=== PATIENT | male | born 1950 | race African-American/Black ===

== ENCOUNTER 2018-03-16 18:19 | Emergency (ER) | payer MEDICARE, MEDICAID ==
--- NOTE | 2018-03-16 18:48 | ED Physician Chart ---
ED Chief Complaint/HPI - Patient Information Date Seen:: 03/16/18 Time Seen:: 18:29 Chief Complaint:: fall History of Present Illness:: 67 yr old with question fall 2 days ago with rt hip pain pt non verbal non alert his usual Allergies:: Allergies Allergy/AdvReac Type Severity Reaction Status Date / Time Penicillins Allergy Intermediate HIVES Verified 03/16/18 18:43 Vitals:: Vital Signs - 8 hr 03/16/18 18:20 Temp 98.1 F HR 79 RR 18 BP 142/85 O2 Sat % 97 ED Review of Systems - Review of Systems General/Constitutional: No fever Eyes: No loss of vision Neck: No swelling Cardio Vascular: No edema Pulmonary: No SOB GI: No vomiting Musculoskeletal: Bone or joint pain Psychiatric: No anxiety Neurological: No syncope ED Past Medical History - Past Medical History Past Medical History: HTN, DM, PUD/GERD Medication: Reviewed ED Physical Exam - Physical Examination General/Constitutional: No distress Other Gen/Cons comments:: pt non verbal not easily following commands he wiggles toes on left more than rt Head: Atraumatic Eyes: Lids, conjuctiva normal Neck: No JVD Respiratory: Nl effort/Exclusion Cardio Vascular: RRR GI: No tenderness/rebounding/guarding Other Neuro/Psych comments:: pt awake following some commands but not verbalizing ED Assessment - Assessment General Assessment: hx of possible fall 2 days ago non witnessed rt hip pain no deformitity or foot external rotation ED Septic Shock - . Is Septic Shock (SBP<90, OR Lactate>4 mmol\L) present?: No - <6hrs of presentation: Vital Signs: Vital Signs - 8 hr 03/16/18 18:20 Temp 98.1 F HR 79 RR 18 BP 142/85 O2 Sat % 97 ED Reassessment (Disposition) - Diagnosis Diagnosis:: fall rt hip pain pelvis xray ordered - Patient Disposition Discharge/Transfer:: Home
[2018-03-16 19:51] LABS: % BASOPHILS 0.1 % (0.0-2.0); % EOSINOPHILS 1.9 % (0.0-5.0); % LYMPHOCYTES 28.9 % (20.0-50.0); % MONOCYTES 2.5 % (2.0-10.0); % NEUTROPHILS 66.6 % (40.0-80.0); EOSINOPHILE ABSOLUTE 0.2 Th/cmm (0.1-0.4); HEMATOCRIT 45.1 % (41.0-60); HEMOGLOBIN 15.2 gm/dL (12-16); LYMPHOCYTE ABSOLUTE 2.7 Th/cmm (1.5-3.0); MEAN CELL VOLUME 86.8 fl (80-99); MEAN CORPUSCULAR HEMOGLOBIN 29.4 pg (27.0-31.0); MEAN CORPUSCULAR HGB CONC 33.8 pg (28.0-36.0); MEAN PLATELET VOLUME 7.3 fl; MONOCYTE ABSOLUTE 0.2 Th/cmm (0.3-1.0); NEUTROPHILE ABSOLUTE 6.3 Th/cmm (1.8-8.0); PLATELET COUNT 248 Th/cmm (150-400); RED BLOOD COUNT 5.19 Mil/cmm (3.80-5.80); RED CELL DISTRIBUTION WIDTH 13.4 % (11.5-20.0); WHITE BLOOD COUNT 9.4 Th/cmm (4.8-10.8)
[2018-03-16 20:08] LABS: ALB/GLOB RATIO 1.2 (1.0-1.8); ALBUMIN 3.7 gm/dL (4.2-5.5); ALKALINE PHOSPHATASE 49 U/L (34-104); ANION GAP 12.3 (7.0-16.0); BILIRUBIN,TOTAL 0.3 mg/dL (0.3-1.0); BUN - UREA NITROGEN 8 mg/dL (7-25); CALCIUM SERUM 9.1 mg/dL (8.6-10.3); CARBON DIOXIDE 26.2 mEq/L (21.0-31.0); CHLORIDE 104 mEq/L (98-107); CREATININE - SERUM 0.6 mg/dL (0.7-1.3); GFR AFRICAN-AMERICAN > 60.0 ml/min (>90); GFR NON AFRICAN-AMERICAN > 60.0 ml/min; GLUCOSE 121 mg/dL (70-105); POTASSIUM SERUM 3.5 mEq/L (3.5-5.1); SGOT 51 U/L (13-39); SGPT/ALT 85 U/L (7-52); SODIUM SERUM 139 mEq/L (136-145); TOTAL PROTEIN,SERUM 6.7 gm/dL (6.0-8.3)
--- NOTE | 2018-03-17 10:07 | Diagnostic Imaging Report ---
Pelvis (single view) HISTORY: Pain, trauma No definite acute bony abnormalities. No definite fractures. Hip joints appear normal. IMPRESSION: 1. No definite acute abnormalities. 2. Atherosclerotic vascular changes In the presence of recent trauma and persistent symptoms, a repeat radiograph in 5-7 days may be helpful for detection of a subtle or occult fracture.
--- NOTE | 2018-03-17 10:07 | Diagnostic Imaging Report ---
Right hip (2 views) HISTORY: Pain, trauma Right hip joint appears normal. The femoral head exhibits a normal contour. No focal lesions. Vascular calcification seen. IMPRESSION: 1. No acute abnormalities 2. Atherosclerotic vascular changes
== END 2018-03-16 21:20 ==
LOC: ER 18:19
DX: M25.551 Pain in right hip (principal); I10 Essential (primary) hypertension; E11.9 Type 2 diabetes mellitus without complications; K21.9 Gastro-esophageal reflux disease without esophagitis; Z88.0 Allergy status to penicillin
CPT/HCPCS: 36415-UA; 72170-TC; 73501; 80053-TC; 85025-TC

== ENCOUNTER 2018-03-18 20:27 | Inpatient (IN) | payer MEDICARE, MEDICAID ==
--- NOTE | 2018-03-18 20:58 | ED Physician Chart ---
ED Chief Complaint/HPI - Patient Information Date Seen:: 03/18/18 Time Seen:: 20:58 Chief Complaint:: Failure to thrive History of Present Illness:: 67 yo male was brought from [facility] to ER for evaluation of failure to thrive with poor appetite, worsened depression and withdrawn behaviors. At ER, patient had increased effort of breathing and elevated respiratory rate. Allergies:: Allergies Allergy/AdvReac Type Severity Reaction Status Date / Time Penicillins Allergy Intermediate HIVES Verified 03/18/18 20:51 Vitals:: Vital Signs - 8 hr 03/18/18 20:30 Temp 101.9 F HR 109 RR 20 BP 145/86 O2 Sat % 95 ED Review of Systems - Review of Systems General/Constitutional: Fever, No chills Skin: No bruising Head: No headache Eyes: No pain ENT: No nasal drainage Neck: No neck pain Cardio Vascular: No chest pain Pulmonary: Cough, Sputum GI: No nausea, No vomiting Musculoskeletal: No bone or joint pain Psychiatric: Prior psych history Neurological: Weakness ED Past Medical History - Past Medical History Past Medical History: HTN, DM, PUD/GERD, Thyroid disorder, Other (Polyneuropathy , osteoarthritis) Social History: Non Smoker, No Alcohol, No Drug Use Psychiatricy History: Depression, Schizophrenia Family Medical History - Family Member Mother History Unknown: Yes ED Physical Exam - Physical Examination General/Constitutional: Awake, Alert Head: Atraumatic Eyes: PERRL Skin: No ecchymosis Other ENMT comments:: No denture Neck: No nuchal rigidity Other Respiratory comments:: Right lung rhonchi and crackles Cardio Vascular: RRR, No murmur, gallop, rubs, NL S1 S2 GI: No tenderness/rebounding/guarding Extremities: No edema Other Neuro/Psych comments:: Oriented to self and place. Unsteady gait ED Labs/Radiology/EKG Results - Lab Results Results: Laboratory Last Values WBC 9.6 Th/cmm (4.8-10.8) 03/18/18 20:59 RBC 5.42 Mil/cmm (3.80-5.80) 03/18/18 20:59 Hgb 16.1 gm/dL (12-16) 03/18/18 20:59 Hct 48.0 % (41.0-60) 03/18/18 20:59 MCV 88.7 fl (80-99) 03/18/18 20:59 MCH 29.7 pg (27.0-31.0) 03/18/18 20:59 MCHC Differential 33.4 pg (28.0-36.0) 03/18/18 20:59 RDW 13.6 % (11.5-20.0) 03/18/18 20:59 Plt Count 237 Th/cmm (150-400) 03/18/18 20:59 MPV 7.5 fl 03/18/18 20:59 Neutrophils % 66.5 % (40.0-80.0) 03/18/18 20:59 Lymphocytes % 23.9 % (20.0-50.0) 03/18/18 20:59 Monocytes % 8.4 % (2.0-10.0) 03/18/18 20:59 Eosinophils % 1.2 % (0.0-5.0) 03/18/18 20:59 Basophils % 0.0 % (0.0-2.0) 03/18/18 20:59 D-Dimer 389 ng/mL (100-400) 03/18/18 20:28 Specimen Source ARTERIAL 03/18/18 22:42 Sample Site Right Radial 03/18/18 22:42 pH 7.47 (7.35-7.45) H 03/18/18 22:42 pCO2 40.0 mmHg (35.0-45.0) 03/18/18 22:42 pO2 91.0 mmHg (80.0-100.0) 03/18/18 22:42 HCO3 28.9 mEq/L (20.0-26.0) H 03/18/18 22:42 Base Excess 5.0 mEq/L (-3.0-3.0) H 03/18/18 22:42 O2 Saturation 98.0 % (92.0-100.0) 03/18/18 22:42 Shadi Test Y 03/18/18 22:42 Vent Rate N/A 03/18/18 22:42 Inspired O2 28 03/18/18 22:42 Tidal Volume N/A 03/18/18 22:42 PEEP N/A 03/18/18 22:42 Pressure (ins/psv/peep) N/A 03/18/18 22:42 Critical Value OPAL RT 03/18/18 22:42 Carbon Dioxide 24.4 mEq/L (21.0-31.0) 03/18/18 20:59 BUN 9 mg/dL (7-25) 03/18/18 20:59 Creatinine 0.6 mg/dL (0.7-1.3) L 03/18/18 20:59 Est GFR ( Amer) > 60.0 ml/min (>90) 03/18/18 20:59 Est GFR (Non-Af Amer) > 60.0 ml/min 03/18/18 20:59 BUN/Creatinine Ratio 15.0 03/18/18 20:59 Glucose 155 mg/dL (70-105) H 03/18/18 20:59 Calcium 9.2 mg/dL (8.6-10.3) 03/18/18 20:59 Total Bilirubin 0.4 mg/dL (0.3-1.0) 03/18/18 20:59 AST 43 U/L (13-39) H 03/18/18 20:59 ALT 72 U/L (7-52) H 03/18/18 20:59 Alkaline Phosphatase 60 U/L (34-104) 03/18/18 20:59 Troponin I 0.01 ng/mL (0.01-0.05) 03/18/18 20:59 B-Natriuretic Peptide 25.7 pg/mL (5.0-100.0) 03/18/18 20:59 Total Protein 7.3 gm/dL (6.0-8.3) 03/18/18 20:59 Albumin 3.9 gm/dL (4.2-5.5) L 03/18/18 20:59 Globulin 3.4 gm/dL 03/18/18 20:59 Albumin/Globulin Ratio 1.2 (1.0-1.8) 03/18/18 20:59 Urine Source RANDOM 03/18/18 21:55 Urine Color YELLOW 03/18/18 21:55 Urine Clarity CLEAR (CLEAR) 03/18/18 21:55 Urine pH 6.5 (4.6 - 8.0) 03/18/18 21:55 Ur Specific [place] 1.015 (1.005-1.030) 03/18/18 21:55 Urine Protein NEGATIVE mg/dL (NEGATIVE) 03/18/18 21:55 Urine Glucose (UA) NEGATIVE mg/dL (NEGATIVE) 03/18/18 21:55 Urine Ketones NEGATIVE mg/dL (NEGATIVE) 03/18/18 21:55 Urine Blood TRACE (NEGATIVE) 03/18/18 21:55 Urine Nitrate NEGATIVE (NEGATIVE) 03/18/18 21:55 Urine Bilirubin NEGATIVE (NEGATIVE) 03/18/18 21:55 Urine Urobilinogen 4.0 E.U./dL (0.2 - 1.0) H 03/18/18 21:55 Ur Leukocyte Esterase NEGATIVE (NEGATIVE) 03/18/18 21:55 Urine RBC 2-5 /hpf (0-5) H 03/18/18 21:55 Urine WBC 0-2 /hpf (0-5) 03/18/18 21:55 Ur Epithelial Cells FEW /lpf (FEW) 03/18/18 21:55 Urine Bacteria FEW /hpf (NONE SEEN) 03/18/18 21:55 Urine Mucus MODERATE /lpf (FEW) 03/18/18 21:55 - Radiology Results Results: CXR: possible right lung nicola-cardiac small infiltrate - EKG Interpretations EKG Time:: 21:12 Rate & Rhythm: 104 bpm, sinus tachycardia [place]: left axis deviation Intervals: ME 162, QRS 103 Comments:: nonspecific T waves changes lateral leads ED Assessment - Assessment General Assessment: Failure to thrive Early pneumonia Metabolic alkalosis Assessment/Comments:: CBC, CMP, Trop I, BNP, D-dimer, UA ABG CXR, EKG DuoNeb Admit to telemetry for further evaluation and management ED Septic Shock - . Is Septic Shock (SBP<90, OR Lactate>4 mmol\L) present?: No - <6hrs of presentation: Vital Signs: Vital Signs - 8 hr 03/18/18 20:30 Temp 101.9 F HR 109 RR 20 BP 145/86 O2 Sat % 95 ED Reassessment (Disposition) - Reassessment Reassessment Condition:: Improved - Patient Disposition Discharge/Transfer:: Acute Care w/in this hosp Admitting Medical Physician:: Shaun Sheth
[2018-03-18 21:07] LABS: % EOSINOPHILS 1.2 % (0.0-5.0); % LYMPHOCYTES 23.9 % (20.0-50.0); % MONOCYTES 8.4 % (2.0-10.0); % NEUTROPHILS 66.5 % (40.0-80.0); EOSINOPHILE ABSOLUTE 0.1 Th/cmm (0.1-0.4); HEMOGLOBIN 16.1 gm/dL (12-16); LYMPHOCYTE ABSOLUTE 2.3 Th/cmm (1.5-3.0); MEAN CELL VOLUME 88.7 fl (80-99); MEAN CORPUSCULAR HEMOGLOBIN 29.7 pg (27.0-31.0); MEAN CORPUSCULAR HGB CONC 33.4 pg (28.0-36.0); MEAN PLATELET VOLUME 7.5 fl; MONOCYTE ABSOLUTE 0.8 Th/cmm (0.3-1.0); NEUTROPHILE ABSOLUTE 6.4 Th/cmm (1.8-8.0); PLATELET COUNT 237 Th/cmm (150-400); RED BLOOD COUNT 5.42 Mil/cmm (3.80-5.80); RED CELL DISTRIBUTION WIDTH 13.6 % (11.5-20.0); WHITE BLOOD COUNT 9.6 Th/cmm (4.8-10.8)
[2018-03-18] MEDS ORDERED: Albuterol/Ipratropium Neb 3 ML AERS HHN ONE ×2 (22:29→22:36)
[2018-03-18 23:23] LABS: pH 7.47 (7.35-7.45)
[2018-03-18 23:24] LABS: ALLEN TEST Y
[2018-03-18 23:30] LABS: ALB/GLOB RATIO 1.2 (1.0-1.8); ALBUMIN 3.9 gm/dL (4.2-5.5); ALKALINE PHOSPHATASE 60 U/L (34-104); BILIRUBIN,TOTAL 0.4 mg/dL (0.3-1.0); BUN - UREA NITROGEN 9 mg/dL (7-25); CALCIUM SERUM 9.2 mg/dL (8.6-10.3); CARBON DIOXIDE 24.4 mEq/L (21.0-31.0); GFR AFRICAN-AMERICAN > 60.0 ml/min (>90); GFR NON AFRICAN-AMERICAN > 60.0 ml/min; GLUCOSE 155 mg/dL (70-105); SGOT 43 U/L (13-39); SGPT/ALT 72 U/L (7-52); TOTAL PROTEIN,SERUM 7.3 gm/dL (6.0-8.3)
[2018-03-18 23:57] LABS: URINE SOURCE RANDOM
[2018-03-19] LABS: URINE BILIRUBIN NEGATIVE (NEGATIVE); URINE BLOOD TRACE (NEGATIVE); URINE GLUCOSE (UA) NEGATIVE (NEGATIVE); URINE KETONE NEGATIVE (NEGATIVE); URINE LEUKOCYTE ESTERASE NEGATIVE (NEGATIVE); URINE MICROSCOPIC INDICATED? YES; URINE NITRATE NEGATIVE (NEGATIVE); URINE PH 6.5 (4.6 - 8.0); URINE PROTEIN NEGATIVE (NEGATIVE)
[2018-03-19 00:06] LABS: URINE BACTERIA FEW /hpf (NONE SEEN); URINE CLARITY CLEAR (CLEAR); URINE COLOR YELLOW; URINE EPITHELIAL CELLS FEW /lpf (FEW); URINE WBC 0-2 /hpf (0-5)
--- NOTE | 2018-03-19 00:24 | History & Physical ---
ADMIT DATE: 03/18/2018 CHIEF COMPLAINT: Repeated falls with severe pain on the knees and ankle and confusion. HISTORY OF PRESENT ILLNESS: The patient is a 67-year-old -[place] male admitted from the Emergency Room to telemetry floor of [facility] due to multiple complicated medical conditions. Apparently, the patient had become more confused in the past few days and he fell multiple times. The patient complained of severe pain albeit x-ray revealed no fracture on last visit 2 days ago to the Emergency Room here. After [facility] to the [facility], the patient became more confused and very weak complaining of pain. He insisted on coming to the Emergency Room again. In the Emergency Room here the ABG revealed pH 7.47 and pCO2 of 28.9 consistent with metabolic alkalosis. This is of unclear etiology. Chest x-ray revealed possible early pneumonia according to ER physician, though the official report is not available yet. Lab ovalles, his AST is slightly high at 43, ALT is slightly high at 72. Troponin less than 0.01. UA was ordered. I have ordered blood culture and urine culture as well. PAST MEDICAL HISTORY: Including hypertension, gastroesophageal reflux disease, diabetes, psychosis, insomnia. PAST SURGICAL HISTORY: Denies significant past surgical history. MEDICATIONS: See medication reconciliation list. ALLERGIES: PENICILLIN. FAMILY HISTORY: Noncontributory. SOCIAL HISTORY: The patient smoked before and still smoking somewhat. No history of alcohol or IV drug abuse. REVIEW OF SYSTEMS: As per HPI. PHYSICAL EXAMINATION: GENERAL: Well-developed male, in no acute distress. SKIN: Warm and dry. VITAL SIGNS: Blood pressure is 151/89, pulse 109, temperature 101.9 degrees Fahrenheit. HEENT: Normocephalic, atraumatic. Pupils equal, round, react to light and accommodation. CHEST: Symmetrical. LUNGS: Few wheezing appreciated on right side. CARDIAC: Tachycardia on and off. ABDOMEN: Benign, soft, nontender. EXTREMITIES: No clubbing, cyanosis, edema . NEUROLOGIC: Unremarkable. LABORATORY DATA: Reviewed as seen from the computer. ASSESSMENT AND PLAN: 1. Fever as high as 101.9 degree Fahrenheit. Etiology of this is not clear, but I have ordered blood culture and urine culture. We will also do sputum culture as well and empiric antibiotics started, which will be adjusted accordingly. 2. Tachycardia: Probably due to fever. 3. Early pneumonia on the right side: Blood culture and sputum culture ordered. RT protocol ordered. Empiric antibiotics started, which will be adjusted accordingly. 4. Metabolic alkalosis: Unclear etiology. We will repeat ABG in the morning. 5. Altered level of consciousness on and off due to metabolic encephalopathy and dementia. 6. History of diabetes: Sliding scale insulin low dose. 7. Hypertension: We will observe closely and adjust medications as needed. 8. History of gastroesophageal reflux disease. 9. DVT prophylaxis. JOB# [id number]
[2018-03-19 01:19] LABS: ANION GAP 17.4 (7.0-16.0); CHLORIDE 104 mEq/L (98-107); CREATININE - SERUM 0.6 mg/dL (0.7-1.3); POTASSIUM SERUM 3.8 mEq/L (3.5-5.1); SODIUM SERUM 142 mEq/L (136-145)
[2018-03-19] MEDS: cefTRIAXone 1 GM in Sodium Chloride 0.9% 50 ML IV SCH (06:00)
[2018-03-19 06:39] LABS: % EOSINOPHILS 0.4 % (0.0-5.0); % LYMPHOCYTES 19.7 % (20.0-50.0); % MONOCYTES 9.9 % (2.0-10.0); HEMATOCRIT 47.6 % (41.0-60); HEMOGLOBIN 15.7 gm/dL (12-16); LYMPHOCYTE ABSOLUTE 2.3 Th/cmm (1.5-3.0); MEAN CELL VOLUME 88.9 fl (80-99); MEAN CORPUSCULAR HEMOGLOBIN 29.4 pg (27.0-31.0); MEAN PLATELET VOLUME 7.8 fl; MONOCYTE ABSOLUTE 1.1 Th/cmm (0.3-1.0); NEUTROPHILE ABSOLUTE 8.2 Th/cmm (1.8-8.0); PLATELET COUNT 214 Th/cmm (150-400); RED BLOOD COUNT 5.35 Mil/cmm (3.80-5.80); RED CELL DISTRIBUTION WIDTH 13.4 % (11.5-20.0); WHITE BLOOD COUNT 11.6 Th/cmm (4.8-10.8)
[2018-03-19 07:06] VITALS: BP 145/100
--- NOTE | 2018-03-19 08:30 | Diagnostic Imaging Report ---
Chest x-ray (single view, AP) HISTORY: Shortness of breath Allowing for a poor inspiration, the heart size is normal. No focal pulmonary processes. No hilar or mediastinal abnormalities. IMPRESSION: No acute abnormalities
[2018-03-19] MEDS: Albuterol/Ipratropium Neb 3 ML AERS HHN PRN ×2 (08:33→14:06)
[2018-03-19 09:04] LABS: CHOLESTEROL 170 mg/dL (<200); HDL -HIGH DENSITY LIPOPROTEIN 29 mg/dL (23-92); TRIGLYCERIDES 52 mg/dL (<150)
[2018-03-19 09:06] LABS: ALB/GLOB RATIO 1.1 (1.0-1.8); ALBUMIN 3.7 gm/dL (4.2-5.5); ALKALINE PHOSPHATASE 55 U/L (34-104); ANION GAP 17.1 (7.0-16.0); BILIRUBIN,TOTAL 0.6 mg/dL (0.3-1.0); BUN - UREA NITROGEN 9 mg/dL (7-25); CALCIUM SERUM 9.4 mg/dL (8.6-10.3); CARBON DIOXIDE 22.3 mEq/L (21.0-31.0); CHLORIDE 105 mEq/L (98-107); CREATININE - SERUM 0.6 mg/dL (0.7-1.3); GFR AFRICAN-AMERICAN > 60.0 ml/min (>90); GFR NON AFRICAN-AMERICAN > 60.0 ml/min; GLUCOSE 128 mg/dL (70-105); POTASSIUM SERUM 3.4 mEq/L (3.5-5.1); SGOT 39 U/L (13-39); SGPT/ALT 65 U/L (7-52); SODIUM SERUM 141 mEq/L (136-145)
[2018-03-19] MEDS ORDERED: VTE Chemical Prophylaxis Screen/Admission MC PRN (10:12)
[2018-03-19] MEDS ORDERED: Probiotic Screen MC PRN (11:37)
[2018-03-19] MEDS: Lactobacillus Rhamnosus GG 15 Billion CFU CAP.SPRINK PO SCH (14:38)
[2018-03-19] MEDS: Albuterol/Ipratropium Neb 3 ML AERS HHN SCH ×3 (15:50→22:49)
[2018-03-19] MEDS: Potassium Chloride 20 mEq ER Tab PO SCH (21:13)
--- NOTE | 2018-03-19 22:47 | Internal Medicine Prog Note ---
Internal Medicine Subjective - Subjective Service Date: 03/19/18 Patient seen and examined:: without staff Patient is:: awake, verbal, eyes closed, in bed Per staff patient has:: no adverse event Internal Medicine Objective - Results Result Diagrams: 03/19/18 06:10 03/19/18 06:10 Recent Labs: Laboratory Last Values WBC 11.6 Th/cmm (4.8-10.8) H 03/19/18 06:10 RBC 5.35 Mil/cmm (3.80-5.80) 03/19/18 06:10 Hgb 15.7 gm/dL (12-16) 03/19/18 06:10 Hct 47.6 % (41.0-60) 03/19/18 06:10 MCV 88.9 fl (80-99) 03/19/18 06:10 MCH 29.4 pg (27.0-31.0) 03/19/18 06:10 MCHC Differential 33.0 pg (28.0-36.0) 03/19/18 06:10 RDW 13.4 % (11.5-20.0) 03/19/18 06:10 Plt Count 214 Th/cmm (150-400) 03/19/18 06:10 MPV 7.8 fl 03/19/18 06:10 Neutrophils % 70.0 % (40.0-80.0) 03/19/18 06:10 Lymphocytes % 19.7 % (20.0-50.0) L 03/19/18 06:10 Monocytes % 9.9 % (2.0-10.0) 03/19/18 06:10 Eosinophils % 0.4 % (0.0-5.0) 03/19/18 06:10 Basophils % 0.0 % (0.0-2.0) 03/19/18 06:10 D-Dimer 389 ng/mL (100-400) 03/18/18 20:28 Specimen Source ARTERIAL 03/18/18 22:42 Sample Site Right Radial 03/18/18 22:42 pH 7.47 (7.35-7.45) H 03/18/18 22:42 pCO2 40.0 mmHg (35.0-45.0) 03/18/18 22:42 pO2 91.0 mmHg (80.0-100.0) 03/18/18 22:42 HCO3 28.9 mEq/L (20.0-26.0) H 03/18/18 22:42 Base Excess 5.0 mEq/L (-3.0-3.0) H 03/18/18 22:42 O2 Saturation 98.0 % (92.0-100.0) 03/18/18 22:42 Shadi Test Y 03/18/18 22:42 Vent Rate N/A 03/18/18 22:42 Inspired O2 28 03/18/18 22:42 Tidal Volume N/A 03/18/18 22:42 PEEP N/A 03/18/18 22:42 Pressure (ins/psv/peep) N/A 03/18/18 22:42 Critical Value OPAL RT 03/18/18 22:42 Sodium 141 mEq/L (136-145) 03/19/18 06:10 Potassium 3.4 mEq/L (3.5-5.1) L 03/19/18 06:10 Chloride 105 mEq/L (98-107) 03/19/18 06:10 Carbon Dioxide 22.3 mEq/L (21.0-31.0) 03/19/18 06:10 Anion Gap 17.1 (7.0-16.0) H 03/19/18 06:10 BUN 9 mg/dL (7-25) 03/19/18 06:10 Creatinine 0.6 mg/dL (0.7-1.3) L 03/19/18 06:10 Est GFR ( Amer) > 60.0 ml/min (>90) 03/19/18 06:10 Est GFR (Non-Af Amer) > 60.0 ml/min 03/19/18 06:10 BUN/Creatinine Ratio 15.0 03/19/18 06:10 Glucose 128 mg/dL (70-105) H 03/19/18 06:10 Calcium 9.4 mg/dL (8.6-10.3) 03/19/18 06:10 Total Bilirubin 0.6 mg/dL (0.3-1.0) 03/19/18 06:10 AST 39 U/L (13-39) 03/19/18 06:10 ALT 65 U/L (7-52) H 08/22/18 06:10 Alkaline Phosphatase 55 U/L (34-104) 03/19/18 06:10 Troponin I 0.01 ng/mL (0.01-0.05) 03/18/18 20:59 B-Natriuretic Peptide 25.7 pg/mL (5.0-100.0) 03/18/18 20:59 Total Protein 7.0 gm/dL (6.0-8.3) 03/19/18 06:10 Albumin 3.7 gm/dL (4.2-5.5) L 03/19/18 06:10 Globulin 3.3 gm/dL 03/19/18 06:10 Albumin/Globulin Ratio 1.1 (1.0-1.8) 03/19/18 06:10 Triglycerides 52 mg/dL (<150) 03/19/18 06:10 Cholesterol 170 mg/dL (<200) 03/19/18 06:10 LDL Cholesterol Direct 140 mg/dL (75-193) 03/19/18 06:10 HDL Cholesterol 29 mg/dL (23-92) 03/19/18 06:10 TSH 0.71 uIU/ml (0.34-5.60) 03/19/18 06:10 Urine Source RANDOM 03/18/18 21:55 Urine Color YELLOW 03/18/18 21:55 Urine Clarity CLEAR (CLEAR) 03/18/18 21:55 Urine pH 6.5 (4.6 - 8.0) 03/18/18 21:55 Ur Specific [place] 1.015 (1.005-1.030) 03/18/18 21:55 Urine Protein NEGATIVE mg/dL (NEGATIVE) 03/18/18 21:55 Urine Glucose (UA) NEGATIVE mg/dL (NEGATIVE) 03/18/18 21:55 Urine Ketones NEGATIVE mg/dL (NEGATIVE) 03/18/18 21:55 Urine Blood TRACE (NEGATIVE) 03/18/18 21:55 Urine Nitrate NEGATIVE (NEGATIVE) 03/18/18 21:55 Urine Bilirubin NEGATIVE (NEGATIVE) 03/18/18 21:55 Urine Urobilinogen 4.0 E.U./dL (0.2 - 1.0) H 03/18/18 21:55 Ur Leukocyte Esterase NEGATIVE (NEGATIVE) 03/18/18 21:55 Urine RBC 2-5 /hpf (0-5) H 03/18/18 21:55 Urine WBC 0-2 /hpf (0-5) 03/18/18 21:55 Ur Epithelial Cells FEW /lpf (FEW) 03/18/18 21:55 Urine Bacteria FEW /hpf (NONE SEEN) 03/18/18 21:55 Urine Mucus MODERATE /lpf (FEW) 03/18/18 21:55 - Physical Exam Vitals and I&O: Vital Signs Temp 98.1 F 03/19/18 15:48 Pulse 111 03/19/18 18:53 Resp 22 03/19/18 18:53 BP 138/78 03/19/18 16:37 Pulse Ox 97 03/19/18 18:53 Intake & Output 03/19/18 03/19/18 03/20/18 06:59 18:59 06:59 Intake Total 950 Balance 950 Weight (lbs) 79.923 kg 80.467 kg Intake: Oral 950 Other: # Voids 1 # Bowel Movements 0 Weight Source Bedscale Bedscale Active Medications: Current Medications Albuterol/Ipratropium (Duoneb Neb) 3 ml HHN Q4HRT CELESTINO Stop: 05/18/18 14:59 Last Admin: 03/19/18 18:52 Dose: 3 ml Amlodipine Besylate (Norvasc) 5 mg PO DAILY CELESTINO Stop: 05/18/18 08:59 Last Admin: 03/19/18 09:13 Dose: 5 mg Famotidine (Pepcid) 20 mg PO HS CELESTINO Stop: 05/18/18 20:59 Last Admin: 03/19/18 21:12 Dose: 20 mg Heparin Sodium (Porcine) (Heparin) 5,000 units SUBQ Q12HR CELESTINO Stop: 05/18/18 20:59 Last Admin: 03/19/18 21:11 Dose: 5,000 units Ceftriaxone Sodium 1 gm/ (Sodium Chloride) 50 mls @ 100 mls/hr IV Q24HR CELESTINO Stop: 05/18/18 02:29 Last Admin: 03/19/18 06:00 Dose: 100 mls/hr Lactobacillus Rhamnosus (Culturelle 15b) 1 each PO DAILY CELESTINO Stop: 05/18/18 13:59 Last Admin: 03/19/18 14:38 Dose: 1 each Metformin HCl (Glucophage) 500 mg PO BID CELESTINO Stop: 05/18/18 08:59 Last Admin: 03/19/18 16:38 Dose: 500 mg Metoprolol Tartrate (Lopressor) 25 mg PO BID CELESTINO Stop: 05/18/18 08:59 Last Admin: 03/19/18 16:37 Dose: 25 mg Miscellaneous (Vte Chemical Prophylaxis Screen/ Admission) 1 ea PRN PRN PRN Reason: PROTOCOL Stop: 05/18/18 10:11 Miscellaneous (Probiotic Screen) 1 ea PRN PRN PRN Reason: PROTOCOL Stop: 05/18/18 11:36 Olanzapine (Zyprexa) 20 mg PO HS CELESTINO; Protocol Stop: 05/18/18 20:59 Last Admin: 03/19/18 21:48 Dose: 20 mg Potassium Chloride (Klor-Con) 20 meq PO DAILY CELESTINO Stop: 05/18/18 20:59 Last Admin: 03/19/18 21:13 Dose: 20 meq Trazodone HCl (Desyrel) 100 mg PO HS CELESTINO Stop: 05/18/18 20:59 Last Admin: 03/19/18 21:11 Dose: 100 mg General: weak, lethargic, congested HEENT: NC/AT, PERRLA, EOMI, anicteric sclerae, throat clear, thyromegaly Neck: Supple, No JVD, No thyromegaly Lungs: wheezing, ronchi Cardiovascular: RRR, Normal S1, Normal S2 Abdomen: soft, non-tender, non-distended Extremities: clear Neurological: no change - Procedures Procedures: Procedures Procedure Code Date OTHER GROUP THERAPY 94.44 09/18/10 RECREATIONAL THERAPY 93.81 09/18/10 Internal Medicine Assmt/Plan - Assessment Assessment: New leukocutosis: IVPB ABX will be adjusted accordingly. Fever: on and off; but better now. Early rt PNA: IVPB ABX. ALOC: darien nd off; observe closely. DM: adjusting meds as needed. s/p falls: fall prevention is being exercised. Nutritional Asmnt/Malnutr-PDOC - Dietary Evaluation Malnutrition Findings (Please click <Entered> for more info): Nutritional Asmnt/Malnutrition Start: 03/19/18 17: 08 Text: Status: Complete Freq: Protocol: Document 03/19/18 17:08 JORJE (Rec: 03/19/18 17:14 [email or web address] [id number]) Nutritional Asmnt/Malnutrition Patient General Information Nutritional Screening High Risk Diagnosis PNA, metabolic alkalosis Pertinent Medical Hx/Surgical Hx HTN, DM, PUD/GERD, thyroid disorder, polyneuropathy, OA, depression, schizophrenia Subjective Information Consult received for poor appetite. Pt seen lying in bed at time of visit, awake, not answering RD questions. Per RN , pt consumed about 75% of breakfast this morning. Current Diet Order/ Nutrition Support pureed Pertinent Medications culturelle, glucophage Pertinent Labs 03/19 K 3.4, Cr 0.6, glucose 128, alb 3.7 03/18 Cr 0.6, glucsoe 155, Alb 3.9 Nutritional Hx/Data Height 1.75 m Height (Calculated Centimeters) 175.3 Current Weight (lbs) 79.832 kg Weight (Calculated Kilograms) 79.8 Weight (Calculated Grams) 43523.3 [place] Body Weight 160 Body Mass Index (BMI) 25.9 Weight Status Overweight GI Symptoms GI Symptoms None Last BM not indicated Difficult in: None Skin Integrity/Comment: bipin cole 12 Current %PO Good (75-100%) Estimated Nutritional Goals BEE in Kcals: Using Current wt Calories/Kcals/Kg 25-30 Kcals Calculated [id number] Protein: Using Current wt Protein g/k Protein Calculated 80 Fluid: ml 2000-2400ml (1ml/kcal) Nutritional Problem 1. Problem Problem altered nutrition related labs Etiology electrolytes imbalance and hx of DM Signs/Symptoms: K 3.4, glucose 128-155 Malnutrition Alert Is there a minimum of two criteria No selected? Query Text:Check all the applicable criteria. A minimum of two criteria are recommended for diagnosis of either severe or non-severe malnutrition. Malnutrition Related to Morbid Obesity Malnutrition related to morbid obesity No Intervention/Recommendation Comments 1. Continue with pureed diet as ordered. Considering adding CCHO-60gm diet restriction if PO intake adequate. 2. Monitor PO intake, wt, labs and skin integrity 3. F/U as high risk in 2-3 days, 03/21-03/22 Expected Outcomes/Goals Expected Outcomes/Goals 1. PO intake to meet at least 75% of nutritional needs. 2. Wt stability, skin to remain intact, labs to approach WNL.
[2018-03-20] MEDS: Albuterol/Ipratropium Neb 3 ML AERS HHN SCH ×6 (02:37→23:24)
[2018-03-20] MEDS: cefTRIAXone 1 GM in Sodium Chloride 0.9% 50 ML IV SCH (03:27)
[2018-03-20] MEDS: Potassium Chloride 20 mEq ER Tab PO SCH (10:51)
[2018-03-20] MEDS: Lactobacillus Rhamnosus GG 15 Billion CFU CAP.SPRINK PO SCH (10:52)
--- NOTE | 2018-03-21 00:18 | Internal Medicine Prog Note ---
Internal Medicine Subjective - Subjective Service Date: 03/20/18 Patient seen and examined:: without staff Patient is:: awake, verbal, eyes closed, in bed Per staff patient has:: no adverse event Internal Medicine Objective - Results Result Diagrams: 03/19/18 06:10 03/19/18 06:10 Recent Labs: Laboratory Last Values WBC 11.6 Th/cmm (4.8-10.8) H 03/19/18 06:10 RBC 5.35 Mil/cmm (3.80-5.80) 03/19/18 06:10 Hgb 15.7 gm/dL (12-16) 03/19/18 06:10 Hct 47.6 % (41.0-60) 03/19/18 06:10 MCV 88.9 fl (80-99) 03/19/18 06:10 MCH 29.4 pg (27.0-31.0) 03/19/18 06:10 MCHC Differential 33.0 pg (28.0-36.0) 03/19/18 06:10 RDW 13.4 % (11.5-20.0) 03/19/18 06:10 Plt Count 214 Th/cmm (150-400) 03/19/18 06:10 MPV 7.8 fl 03/19/18 06:10 Neutrophils % 70.0 % (40.0-80.0) 03/19/18 06:10 Lymphocytes % 19.7 % (20.0-50.0) L 03/19/18 06:10 Monocytes % 9.9 % (2.0-10.0) 03/19/18 06:10 Eosinophils % 0.4 % (0.0-5.0) 03/19/18 06:10 Basophils % 0.0 % (0.0-2.0) 03/19/18 06:10 D-Dimer 389 ng/mL (100-400) 03/18/18 20:28 Specimen Source ARTERIAL 03/18/18 22:42 Sample Site Right Radial 03/18/18 22:42 pH 7.47 (7.35-7.45) H 03/18/18 22:42 pCO2 40.0 mmHg (35.0-45.0) 03/18/18 22:42 pO2 91.0 mmHg (80.0-100.0) 03/18/18 22:42 HCO3 28.9 mEq/L (20.0-26.0) H 03/18/18 22:42 Base Excess 5.0 mEq/L (-3.0-3.0) H 03/18/18 22:42 O2 Saturation 98.0 % (92.0-100.0) 03/18/18 22:42 Shadi Test Y 03/18/18 22:42 Vent Rate N/A 03/18/18 22:42 Inspired O2 28 03/18/18 22:42 Tidal Volume N/A 03/18/18 22:42 PEEP N/A 03/18/18 22:42 Pressure (ins/psv/peep) N/A 03/18/18 22:42 Critical Value OPAL RT 03/18/18 22:42 Sodium 141 mEq/L (136-145) 03/19/18 06:10 Potassium 3.4 mEq/L (3.5-5.1) L 03/19/18 06:10 Chloride 105 mEq/L (98-107) 03/19/18 06:10 Carbon Dioxide 22.3 mEq/L (21.0-31.0) 03/19/18 06:10 Anion Gap 17.1 (7.0-16.0) H 03/19/18 06:10 BUN 9 mg/dL (7-25) 03/19/18 06:10 Creatinine 0.6 mg/dL (0.7-1.3) L 03/19/18 06:10 Est GFR ( Amer) > 60.0 ml/min (>90) 03/19/18 06:10 Est GFR (Non-Af Amer) > 60.0 ml/min 03/19/18 06:10 BUN/Creatinine Ratio 15.0 03/19/18 06:10 Glucose 128 mg/dL (70-105) H 03/19/18 06:10 Calcium 9.4 mg/dL (8.6-10.3) 03/19/18 06:10 Total Bilirubin 0.6 mg/dL (0.3-1.0) 03/19/18 06:10 AST 39 U/L (13-39) 03/19/18 06:10 ALT 65 U/L (7-52) H 08/22/18 06:10 Alkaline Phosphatase 55 U/L (34-104) 03/19/18 06:10 Troponin I 0.01 ng/mL (0.01-0.05) 03/18/18 20:59 B-Natriuretic Peptide 25.7 pg/mL (5.0-100.0) 03/18/18 20:59 Total Protein 7.0 gm/dL (6.0-8.3) 03/19/18 06:10 Albumin 3.7 gm/dL (4.2-5.5) L 03/19/18 06:10 Globulin 3.3 gm/dL 03/19/18 06:10 Albumin/Globulin Ratio 1.1 (1.0-1.8) 03/19/18 06:10 Triglycerides 52 mg/dL (<150) 03/19/18 06:10 Cholesterol 170 mg/dL (<200) 03/19/18 06:10 LDL Cholesterol Direct 140 mg/dL (75-193) 03/19/18 06:10 HDL Cholesterol 29 mg/dL (23-92) 03/19/18 06:10 Prostate Specific Ag 0.6 ng/mL (0.0-4.0) 03/19/18 06:10 TSH 0.71 uIU/ml (0.34-5.60) 03/19/18 06:10 Urine Source RANDOM 03/18/18 21:55 Urine Color YELLOW 03/18/18 21:55 Urine Clarity CLEAR (CLEAR) 03/18/18 21:55 Urine pH 6.5 (4.6 - 8.0) 03/18/18 21:55 Ur Specific [place] 1.015 (1.005-1.030) 03/18/18 21:55 Urine Protein NEGATIVE mg/dL (NEGATIVE) 03/18/18 21:55 Urine Glucose (UA) NEGATIVE mg/dL (NEGATIVE) 03/18/18 21:55 Urine Ketones NEGATIVE mg/dL (NEGATIVE) 03/18/18 21:55 Urine Blood TRACE (NEGATIVE) 03/18/18 21:55 Urine Nitrate NEGATIVE (NEGATIVE) 03/18/18 21:55 Urine Bilirubin NEGATIVE (NEGATIVE) 03/18/18 21:55 Urine Urobilinogen 4.0 E.U./dL (0.2 - 1.0) H 03/18/18 21:55 Ur Leukocyte Esterase NEGATIVE (NEGATIVE) 03/18/18 21:55 Urine RBC 2-5 /hpf (0-5) H 03/18/18 21:55 Urine WBC 0-2 /hpf (0-5) 03/18/18 21:55 Ur Epithelial Cells FEW /lpf (FEW) 03/18/18 21:55 Urine Bacteria FEW /hpf (NONE SEEN) 03/18/18 21:55 Urine Mucus MODERATE /lpf (FEW) 03/18/18 21:55 - Physical Exam Vitals and I&O: Vital Signs Temp 99.7 F 03/20/18 20:00 Pulse 104 03/20/18 23:24 Resp 20 03/20/18 23:24 BP 130/76 03/20/18 20:00 Pulse Ox 95 03/20/18 23:24 Intake & Output 03/20/18 03/20/18 03/21/18 06:59 18:59 06:59 Intake Total 720 Balance 720 Weight (lbs) 81.692 kg 81.692 kg Intake: Oral 720 Other: # Voids 2 # Bowel Movements 1 Weight Source Bedscale Bedscale Active Medications: Current Medications Albuterol/Ipratropium (Duoneb Neb) 3 ml HHN Q4HRT [facility]INO Stop: 05/18/18 14:59 Last Admin: 03/20/18 23:24 Dose: 3 ml Amlodipine Besylate (Norvasc) 5 mg PO DAILY [facility] Stop: 05/18/18 08:59 Last Admin: 03/20/18 10:51 Dose: 5 mg Famotidine (Pepcid) 20 mg PO HS [facility] Stop: 05/18/18 20:59 Last Admin: 03/20/18 20:33 Dose: 20 mg Heparin Sodium (Porcine) (Heparin) 5,000 units SUBQ Q12HR [facility] Stop: 05/18/18 20:59 Last Admin: 03/20/18 20:33 Dose: 5,000 units Ceftriaxone Sodium 1 gm/ (Sodium Chloride) 50 mls @ 100 mls/hr IV Q24HR [facility]INO Stop: 05/18/18 02:29 Last Admin: 03/20/18 03:27 Dose: 100 mls/hr Lactobacillus Rhamnosus (Culturelle 15b) 1 each PO DAILY [facility]INO Stop: 05/18/18 13:59 Last Admin: 08/23/18 10:52 Dose: 1 each Metformin HCl (Glucophage) 500 mg PO BID [facility] Stop: 05/18/18 08:59 Last Admin: 03/20/18 17:22 Dose: 500 mg Metoprolol Tartrate (Lopressor) 25 mg PO BID [facility] Stop: 05/18/18 08:59 Last Admin: 03/20/18 17:22 Dose: 25 mg Miscellaneous (Vte Chemical Prophylaxis Screen/ Admission) 1 ea PRN PRN PRN Reason: PROTOCOL Stop: 05/18/18 10:11 Miscellaneous (Probiotic Screen) 1 ea PRN PRN PRN Reason: PROTOCOL Stop: 05/18/18 11:36 Olanzapine (Zyprexa) 20 mg PO HS CELESTINO; Protocol Stop: 05/18/18 20:59 Last Admin: 03/20/18 20:33 Dose: 20 mg Potassium Chloride (Klor-Con) 20 meq PO DAILY [facility] Stop: 05/18/18 20:59 Last Admin: 03/20/18 10:51 Dose: 20 meq Trazodone HCl (Desyrel) 100 mg PO HS [facility] Stop: 05/18/18 20:59 Last Admin: 03/20/18 20:33 Dose: 100 mg General: weak, lethargic, congested HEENT: NC/AT, PERRLA, EOMI, anicteric sclerae, throat clear, thyromegaly Neck: Supple, No JVD, No thyromegaly Lungs: wheezing, ronchi Cardiovascular: RRR, Normal S1, Normal S2 Abdomen: soft, non-tender, non-distended Extremities: clear Neurological: no change - Procedures Procedures: Procedures Procedure Code Date OTHER GROUP THERAPY 94.44 09/18/10 RECREATIONAL THERAPY 93.81 09/18/10 Internal Medicine Assmt/Plan - Assessment Assessment: Hypokalemia: supplemented; repeat BMP in AM. New leukocutosis: IVPB ABX will be adjusted accordingly. Fever: on and off; but better now. Early rt PNA: IVPB ABX. ALOC: darien nd off; observe closely. DM: adjusting meds as needed. s/p falls: fall prevention is being exercised. Nutritional Asmnt/Malnutr-PDOC - Dietary Evaluation Malnutrition Findings (Please click <Entered> for more info): Nutritional Asmnt/Malnutrition Start: 03/19/18 17: 08 Text: Status: Complete Freq: Protocol: Document 03/19/18 17:08 LCFLETCHERG (Rec: 03/19/18 17:14 [email or web address]) Nutritional Asmnt/Malnutrition Patient General Information Nutritional Screening High Risk Diagnosis PNA, metabolic alkalosis Pertinent Medical Hx/Surgical Hx HTN, DM, PUD/GERD, thyroid disorder, polyneuropathy, OA, depression, schizophrenia Subjective Information Consult received for poor appetite. Pt seen lying in bed at time of visit, awake, not answering RD questions. Per RN , pt consumed about 75% of breakfast this morning. Current Diet Order/ Nutrition Support pureed Pertinent Medications culturelle, glucophage Pertinent Labs 03/19 K 3.4, Cr 0.6, glucose 128, alb 3.7 03/18 Cr 0.6, glucsoe 155, Alb 3.9 Nutritional Hx/Data Height 1.75 m Height (Calculated Centimeters) 175.3 Current Weight (lbs) 79.832 kg Weight (Calculated Kilograms) 79.8 Weight (Calculated Grams) 25488.3 [place] Body Weight 160 Body Mass Index (BMI) 25.9 Weight Status Overweight GI Symptoms GI Symptoms None Last BM not indicated Difficult in: None Skin Integrity/Comment: dry douglas 12 Current %PO Good (75-100%) Estimated Nutritional Goals BEE in Kcals: Using Current wt Calories/Kcals/Kg 25-30 Kcals Calculated 2638-3426 Protein: Using Current wt Protein g/k Protein Calculated 80 Fluid: ml 2000-2400ml (1ml/kcal) Nutritional Problem 1. Problem Problem altered nutrition related labs Etiology electrolytes imbalance and hx of DM Signs/Symptoms: K 3.4, glucose 128-155 Malnutrition Alert Is there a minimum of two criteria No selected? Query Text:Check all the applicable criteria. A minimum of two criteria are recommended for diagnosis of either severe or non-severe malnutrition. Malnutrition Related to Morbid Obesity Malnutrition related to morbid obesity No Intervention/Recommendation Comments 1. Continue with pureed diet as ordered. Considering adding CCHO-60gm diet restriction if PO intake adequate. 2. Monitor PO intake, wt, labs and skin integrity 3. F/U as high risk in 2-3 days, 03/21-03/22 Expected Outcomes/Goals Expected Outcomes/Goals 1. PO intake to meet at least 75% of nutritional needs. 2. Wt stability, skin to remain intact, labs to approach WNL.
[2018-03-21] MEDS: cefTRIAXone 1 GM in Sodium Chloride 0.9% 50 ML IV SCH (02:46)
[2018-03-21] MEDS: Albuterol/Ipratropium Neb 3 ML AERS HHN SCH ×6 (02:58→23:29)
[2018-03-21 06:53] LABS: % EOSINOPHILS 2.8 % (0.0-5.0); % LYMPHOCYTES 24.3 % (20.0-50.0); % MONOCYTES 8.7 % (2.0-10.0); % NEUTROPHILS 64.2 % (40.0-80.0); EOSINOPHILE ABSOLUTE 0.3 Th/cmm (0.1-0.4); HEMATOCRIT 44.9 % (41.0-60); HEMOGLOBIN 14.9 gm/dL (12-16); LYMPHOCYTE ABSOLUTE 2.4 Th/cmm (1.5-3.0); MEAN CELL VOLUME 88.4 fl (80-99); MEAN CORPUSCULAR HEMOGLOBIN 29.4 pg (27.0-31.0); MEAN CORPUSCULAR HGB CONC 33.2 pg (28.0-36.0); MEAN PLATELET VOLUME 8.1 fl; MONOCYTE ABSOLUTE 0.9 Th/cmm (0.3-1.0); NEUTROPHILE ABSOLUTE 6.4 Th/cmm (1.8-8.0); PLATELET COUNT 208 Th/cmm (150-400); RED BLOOD COUNT 5.07 Mil/cmm (3.80-5.80); RED CELL DISTRIBUTION WIDTH 13.9 % (11.5-20.0)
[2018-03-21 07:13] LABS: ANION GAP 12.5 (7.0-16.0); BUN - UREA NITROGEN 10 mg/dL (7-25); CALCIUM SERUM 9.2 mg/dL (8.6-10.3); CARBON DIOXIDE 27.2 mEq/L (21.0-31.0); CHLORIDE 107 mEq/L (98-107); CREATININE - SERUM 0.6 mg/dL (0.7-1.3); GFR AFRICAN-AMERICAN > 60.0 ml/min (>90); GFR NON AFRICAN-AMERICAN > 60.0 ml/min; GLUCOSE 144 mg/dL (70-105); POTASSIUM SERUM 3.7 mEq/L (3.5-5.1); SODIUM SERUM 143 mEq/L (136-145)
[2018-03-21] MEDS: Potassium Chloride 20 mEq ER Tab PO SCH (08:15)
[2018-03-21] MEDS: Lactobacillus Rhamnosus GG 15 Billion CFU CAP.SPRINK PO SCH (09:18)
--- NOTE | 2018-03-21 22:28 | Internal Medicine Prog Note ---
Internal Medicine Subjective - Subjective Service Date: 03/21/18 Patient seen and examined:: without staff Patient is:: awake, verbal, eyes closed, in bed Per staff patient has:: no adverse event Internal Medicine Objective - Results Result Diagrams: 03/21/18 06:31 03/21/18 06:31 Recent Labs: Laboratory Last Values WBC 10.0 Th/cmm (4.8-10.8) 03/21/18 06:31 RBC 5.07 Mil/cmm (3.80-5.80) 03/21/18 06:31 Hgb 14.9 gm/dL (12-16) 03/21/18 06:31 Hct 44.9 % (41.0-60) 03/21/18 06:31 MCV 88.4 fl (80-99) 03/21/18 06:31 MCH 29.4 pg (27.0-31.0) 03/21/18 06:31 MCHC Differential 33.2 pg (28.0-36.0) 03/21/18 06:31 RDW 13.9 % (11.5-20.0) 03/21/18 06:31 Plt Count 208 Th/cmm (150-400) 03/21/18 06:31 MPV 8.1 fl 03/21/18 06:31 Neutrophils % 64.2 % (40.0-80.0) 03/21/18 06:31 Lymphocytes % 24.3 % (20.0-50.0) 03/21/18 06:31 Monocytes % 8.7 % (2.0-10.0) 03/21/18 06:31 Eosinophils % 2.8 % (0.0-5.0) 03/21/18 06:31 Basophils % 0.0 % (0.0-2.0) 03/21/18 06:31 D-Dimer 389 ng/mL (100-400) 03/18/18 20:28 Specimen Source ARTERIAL 03/18/18 22:42 Sample Site Right Radial 03/18/18 22:42 pH 7.47 (7.35-7.45) H 03/18/18 22:42 pCO2 40.0 mmHg (35.0-45.0) 03/18/18 22:42 pO2 91.0 mmHg (80.0-100.0) 03/18/18 22:42 HCO3 28.9 mEq/L (20.0-26.0) H 03/18/18 22:42 Base Excess 5.0 mEq/L (-3.0-3.0) H 03/18/18 22:42 O2 Saturation 98.0 % (92.0-100.0) 03/18/18 22:42 Shadi Test Y 03/18/18 22:42 Vent Rate N/A 03/18/18 22:42 Inspired O2 28 03/18/18 22:42 Tidal Volume N/A 03/18/18 22:42 PEEP N/A 03/18/18 22:42 Pressure (ins/psv/peep) N/A 03/18/18 22:42 Critical Value OPAL RT 03/18/18 22:42 Sodium 143 mEq/L (136-145) 03/21/18 06:31 Potassium 3.7 mEq/L (3.5-5.1) 03/21/18 06:31 Chloride 107 mEq/L (98-107) 03/21/18 06:31 Carbon Dioxide 27.2 mEq/L (21.0-31.0) 03/21/18 06:31 Anion Gap 12.5 (7.0-16.0) 03/21/18 06:31 BUN 10 mg/dL (7-25) 03/21/18 06:31 Creatinine 0.6 mg/dL (0.7-1.3) L 03/21/18 06:31 Est GFR ( Amer) > 60.0 ml/min (>90) 03/21/18 06:31 Est GFR (Non-Af Amer) > 60.0 ml/min 03/21/18 06:31 BUN/Creatinine Ratio 16.7 03/21/18 06:31 Glucose 144 mg/dL (70-105) H 03/21/18 06:31 Calcium 9.2 mg/dL (8.6-10.3) 03/21/18 06:31 Total Bilirubin 0.6 mg/dL (0.3-1.0) 03/19/18 06:10 AST 39 U/L (13-39) 03/19/18 06:10 ALT 65 U/L (7-52) H 03/19/18 06:10 Alkaline Phosphatase 55 U/L (34-104) 03/19/18 06:10 Troponin I 0.01 ng/mL (0.01-0.05) 03/18/18 20:59 B-Natriuretic Peptide 25.7 pg/mL (5.0-100.0) 03/18/18 20:59 Total Protein 7.0 gm/dL (6.0-8.3) 03/19/18 06:10 Albumin 3.7 gm/dL (4.2-5.5) L 03/19/18 06:10 Globulin 3.3 gm/dL 03/19/18 06:10 Albumin/Globulin Ratio 1.1 (1.0-1.8) 03/19/18 06:10 Triglycerides 52 mg/dL (<150) 03/19/18 06:10 Cholesterol 170 mg/dL (<200) 03/19/18 06:10 LDL Cholesterol Direct 140 mg/dL (75-193) 03/19/18 06:10 HDL Cholesterol 29 mg/dL (23-92) 03/19/18 06:10 Prostate Specific Ag 0.6 ng/mL (0.0-4.0) 03/19/18 06:10 TSH 0.71 uIU/ml (0.34-5.60) 03/19/18 06:10 Urine Source RANDOM 03/18/18 21:55 Urine Color YELLOW 03/18/18 21:55 Urine Clarity CLEAR (CLEAR) 03/18/18 21:55 Urine pH 6.5 (4.6 - 8.0) 03/18/18 21:55 Ur Specific [place] 1.015 (1.005-1.030) 03/18/18 21:55 Urine Protein NEGATIVE mg/dL (NEGATIVE) 03/18/18 21:55 Urine Glucose (UA) NEGATIVE mg/dL (NEGATIVE) 03/18/18 21:55 Urine Ketones NEGATIVE mg/dL (NEGATIVE) 03/18/18 21:55 Urine Blood TRACE (NEGATIVE) 03/18/18 21:55 Urine Nitrate NEGATIVE (NEGATIVE) 03/18/18 21:55 Urine Bilirubin NEGATIVE (NEGATIVE) 03/18/18 21:55 Urine Urobilinogen 4.0 E.U./dL (0.2 - 1.0) H 03/18/18 21:55 Ur Leukocyte Esterase NEGATIVE (NEGATIVE) 03/18/18 21:55 Urine RBC 2-5 /hpf (0-5) H 03/18/18 21:55 Urine WBC 0-2 /hpf (0-5) 03/18/18 21:55 Ur Epithelial Cells FEW /lpf (FEW) 03/18/18 21:55 Urine Bacteria FEW /hpf (NONE SEEN) 03/18/18 21:55 Urine Mucus MODERATE /lpf (FEW) 03/18/18 21:55 - Physical Exam Vitals and I&O: Vital Signs Temp 97.9 F 03/21/18 16:00 Pulse 102 03/21/18 19:27 Resp 26 03/21/18 20:00 BP 129/78 03/21/18 17:10 Pulse Ox 97 03/21/18 19:27 Intake & Output 03/21/18 03/21/18 03/22/18 06:59 18:59 06:59 Intake Total 650 Balance 650 Weight (lbs) 81.647 kg Intake: Oral 650 Other: # Voids 3 # Bowel Movements 1 Weight Source Bedscale Active Medications: Current Medications Albuterol/Ipratropium (Duoneb Neb) 3 ml HHN Q4HRT [facility] Stop: 05/18/18 14:59 Last Admin: 03/21/18 19:27 Dose: 3 ml Amlodipine Besylate (Norvasc) 5 mg PO DAILY [facility] Stop: 05/18/18 08:59 Last Admin: 03/21/18 09:18 Dose: 5 mg Famotidine (Pepcid) 20 mg PO HS [facility] Stop: 05/18/18 20:59 Last Admin: 03/21/18 20:47 Dose: 20 mg Heparin Sodium (Porcine) (Heparin) 5,000 units SUBQ Q12HR [facility] Stop: 05/18/18 20:59 Last Admin: 03/21/18 20:48 Dose: 5,000 units Ceftriaxone Sodium 1 gm/ (Sodium Chloride) 50 mls @ 100 mls/hr IV Q24HR [facility] Stop: 05/18/18 02:29 Last Admin: 03/21/18 02:46 Dose: 100 mls/hr Lactobacillus Rhamnosus (Culturelle 15b) 1 each PO DAILY [facility] Stop: 05/18/18 13:59 Last Admin: 03/21/18 09:18 Dose: 1 each Metformin HCl (Glucophage) 500 mg PO BID [facility] Stop: 05/18/18 08:59 Last Admin: 03/21/18 17:10 Dose: 500 mg Metoprolol Tartrate (Lopressor) 25 mg PO BID [facility] Stop: 05/18/18 08:59 Last Admin: 03/21/18 17:10 Dose: 25 mg Miscellaneous (Vte Chemical Prophylaxis Screen/ Admission) 1 ea PRN PRN PRN Reason: PROTOCOL Stop: 05/18/18 10:11 Miscellaneous (Probiotic Screen) 1 ea PRN PRN PRN Reason: PROTOCOL Stop: 05/18/18 11:36 Olanzapine (Zyprexa) 20 mg PO HS [facility]LESTINO; Protocol Stop: 05/18/18 20:59 Last Admin: 03/21/18 20:47 Dose: 20 mg Potassium Chloride (Klor-Con) 20 meq PO DAILY [facility] Stop: 05/18/18 20:59 Last Admin: 03/21/18 08:15 Dose: 20 meq Trazodone HCl (Desyrel) 100 mg PO HS [facility] Stop: 05/18/18 20:59 Last Admin: 03/21/18 20:47 Dose: 100 mg General: weak, lethargic, congested HEENT: NC/AT, PERRLA, EOMI, anicteric sclerae, throat clear, thyromegaly Neck: Supple, No JVD, No thyromegaly Lungs: wheezing, ronchi Cardiovascular: RRR, Normal S1, Normal S2 Abdomen: soft, non-tender, non-distended Extremities: clear Neurological: no change - Procedures Procedures: Procedures Procedure Code Date OTHER GROUP THERAPY 94.44 09/18/10 RECREATIONAL THERAPY 93.81 09/18/10 Internal Medicine Assmt/Plan - Assessment Assessment: Early rt PNA: IVPB ABX. Hypokalemia: supplemented; repeat BMP in AM. New leukocutosis: resolving? IVPB ABX will be adjusted accordingly. Fever: on and off; but better now. ALOC: on and off; observe closely. DM: adjusting meds as needed. s/p falls: fall prevention is being exercised. Nutritional Asmnt/Malnutr-PDOC - Dietary Evaluation Malnutrition Findings (Please click <Entered> for more info): Nutritional Asmnt/Malnutrition Start: 03/19/18 17: 08 Text: Status: Complete Freq: Protocol: Document 03/19/18 17:08 LCHENG (Rec: 03/19/18 17:14 [email or web address]) Nutritional Asmnt/Malnutrition Patient General Information Nutritional Screening High Risk Diagnosis PNA, metabolic alkalosis Pertinent Medical Hx/Surgical Hx HTN, DM, PUD/GERD, thyroid disorder, polyneuropathy, OA, depression, schizophrenia Subjective Information Consult received for poor appetite. Pt seen lying in bed at time of visit, awake, not answering RD questions. Per RN , pt consumed about 75% of breakfast this morning. Current Diet Order/ Nutrition Support pureed Pertinent Medications culturelle, glucophage Pertinent Labs 03/19 K 3.4, Cr 0.6, glucose 128, alb 3.7 03/18 Cr 0.6, glucsoe 155, Alb 3.9 Nutritional Hx/Data Height 1.75 m Height (Calculated Centimeters) 175.3 Current Weight (lbs) 79.832 kg Weight (Calculated Kilograms) 79.8 Weight (Calculated Grams) 79664.3 [place] Body Weight 160 Body Mass Index (BMI) 25.9 Weight Status Overweight GI Symptoms GI Symptoms None Last BM not indicated Difficult in: None Skin Integrity/Comment: dry douglas 12 Current %PO Good (75-100%) Estimated Nutritional Goals BEE in Kcals: Using Current wt Calories/Kcals/Kg 25-30 Kcals Calculated 6426-2926 Protein: Using Current wt Protein g/k Protein Calculated 80 Fluid: ml 2000-2400ml (1ml/kcal) Nutritional Problem 1. Problem Problem altered nutrition related labs Etiology electrolytes imbalance and hx of DM Signs/Symptoms: K 3.4, glucose 128-155 Malnutrition Alert Is there a minimum of two criteria No selected? Query Text:Check all the applicable criteria. A minimum of two criteria are recommended for diagnosis of either severe or non-severe malnutrition. Malnutrition Related to Morbid Obesity Malnutrition related to morbid obesity No Intervention/Recommendation Comments 1. Continue with pureed diet as ordered. Considering adding CCHO-60gm diet restriction if PO intake adequate. 2. Monitor PO intake, wt, labs and skin integrity 3. F/U as high risk in 2-3 days, 03/21-03/22 Expected Outcomes/Goals Expected Outcomes/Goals 1. PO intake to meet at least 75% of nutritional needs. 2. Wt stability, skin to remain intact, labs to approach WNL.
[2018-03-22] MEDS: cefTRIAXone 1 GM in Sodium Chloride 0.9% 50 ML IV SCH (02:18)
[2018-03-22] MEDS: Albuterol/Ipratropium Neb 3 ML AERS HHN SCH ×6 (02:44→22:59)
[2018-03-22] MEDS: Lactobacillus Rhamnosus GG 15 Billion CFU CAP.SPRINK PO SCH (09:02)
[2018-03-22] MEDS: Potassium Chloride 20 mEq ER Tab PO SCH (09:02)
--- NOTE | 2018-03-22 23:30 | Internal Medicine Prog Note ---
Internal Medicine Subjective - Subjective Service Date: 03/22/18 Patient seen and examined:: without staff Patient is:: awake, verbal, eyes closed, in bed Per staff patient has:: no adverse event Internal Medicine Objective - Results Result Diagrams: 03/21/18 06:31 03/21/18 06:31 Recent Labs: Laboratory Last Values WBC 10.0 Th/cmm (4.8-10.8) 03/21/18 06:31 RBC 5.07 Mil/cmm (3.80-5.80) 03/21/18 06:31 Hgb 14.9 gm/dL (12-16) 03/21/18 06:31 Hct 44.9 % (41.0-60) 03/21/18 06:31 MCV 88.4 fl (80-99) 03/21/18 06:31 MCH 29.4 pg (27.0-31.0) 03/21/18 06:31 MCHC Differential 33.2 pg (28.0-36.0) 03/21/18 06:31 RDW 13.9 % (11.5-20.0) 03/21/18 06:31 Plt Count 208 Th/cmm (150-400) 03/21/18 06:31 MPV 8.1 fl 03/21/18 06:31 Neutrophils % 64.2 % (40.0-80.0) 03/21/18 06:31 Lymphocytes % 24.3 % (20.0-50.0) 03/21/18 06:31 Monocytes % 8.7 % (2.0-10.0) 03/21/18 06:31 Eosinophils % 2.8 % (0.0-5.0) 03/21/18 06:31 Basophils % 0.0 % (0.0-2.0) 03/21/18 06:31 D-Dimer 389 ng/mL (100-400) 03/18/18 20:28 Specimen Source ARTERIAL 03/18/18 22:42 Sample Site Right Radial 03/18/18 22:42 pH 7.47 (7.35-7.45) H 03/18/18 22:42 pCO2 40.0 mmHg (35.0-45.0) 03/18/18 22:42 pO2 91.0 mmHg (80.0-100.0) 03/18/18 22:42 HCO3 28.9 mEq/L (20.0-26.0) H 03/18/18 22:42 Base Excess 5.0 mEq/L (-3.0-3.0) H 03/18/18 22:42 O2 Saturation 98.0 % (92.0-100.0) 03/18/18 22:42 Shadi Test Y 03/18/18 22:42 Vent Rate N/A 03/18/18 22:42 Inspired O2 28 03/18/18 22:42 Tidal Volume N/A 03/18/18 22:42 PEEP N/A 03/18/18 22:42 Pressure (ins/psv/peep) N/A 03/18/18 22:42 Critical Value OPAL RT 03/18/18 22:42 Sodium 143 mEq/L (136-145) 03/21/18 06:31 Potassium 3.7 mEq/L (3.5-5.1) 03/21/18 06:31 Chloride 107 mEq/L (98-107) 03/21/18 06:31 Carbon Dioxide 27.2 mEq/L (21.0-31.0) 03/21/18 06:31 Anion Gap 12.5 (7.0-16.0) 03/21/18 06:31 BUN 10 mg/dL (7-25) 03/21/18 06:31 Creatinine 0.6 mg/dL (0.7-1.3) L 03/21/18 06:31 Est GFR ( Amer) > 60.0 ml/min (>90) 03/21/18 06:31 Est GFR (Non-Af Amer) > 60.0 ml/min 03/21/18 06:31 BUN/Creatinine Ratio 16.7 03/21/18 06:31 Glucose 144 mg/dL (70-105) H 03/21/18 06:31 Calcium 9.2 mg/dL (8.6-10.3) 03/21/18 06:31 Total Bilirubin 0.6 mg/dL (0.3-1.0) 03/19/18 06:10 AST 39 U/L (13-39) 03/19/18 06:10 ALT 65 U/L (7-52) H 03/19/18 06:10 Alkaline Phosphatase 55 U/L (34-104) 03/19/18 06:10 Troponin I 0.01 ng/mL (0.01-0.05) 03/18/18 20:59 B-Natriuretic Peptide 25.7 pg/mL (5.0-100.0) 03/18/18 20:59 Total Protein 7.0 gm/dL (6.0-8.3) 03/19/18 06:10 Albumin 3.7 gm/dL (4.2-5.5) L 03/19/18 06:10 Globulin 3.3 gm/dL 03/19/18 06:10 Albumin/Globulin Ratio 1.1 (1.0-1.8) 03/19/18 06:10 Triglycerides 52 mg/dL (<150) 03/19/18 06:10 Cholesterol 170 mg/dL (<200) 03/19/18 06:10 LDL Cholesterol Direct 140 mg/dL (75-193) 03/19/18 06:10 HDL Cholesterol 29 mg/dL (23-92) 03/19/18 06:10 Prostate Specific Ag 0.6 ng/mL (0.0-4.0) 03/19/18 06:10 TSH 0.71 uIU/ml (0.34-5.60) 03/19/18 06:10 Urine Source RANDOM 03/18/18 21:55 Urine Color YELLOW 03/18/18 21:55 Urine Clarity CLEAR (CLEAR) 03/18/18 21:55 Urine pH 6.5 (4.6 - 8.0) 03/18/18 21:55 Ur Specific Watson 1.015 (1.005-1.030) 03/18/18 21:55 Urine Protein NEGATIVE mg/dL (NEGATIVE) 03/18/18 21:55 Urine Glucose (UA) NEGATIVE mg/dL (NEGATIVE) 03/18/18 21:55 Urine Ketones NEGATIVE mg/dL (NEGATIVE) 03/18/18 21:55 Urine Blood TRACE (NEGATIVE) 03/18/18 21:55 Urine Nitrate NEGATIVE (NEGATIVE) 03/18/18 21:55 Urine Bilirubin NEGATIVE (NEGATIVE) 03/18/18 21:55 Urine Urobilinogen 4.0 E.U./dL (0.2 - 1.0) H 03/18/18 21:55 Ur Leukocyte Esterase NEGATIVE (NEGATIVE) 03/18/18 21:55 Urine RBC 2-5 /hpf (0-5) H 03/18/18 21:55 Urine WBC 0-2 /hpf (0-5) 03/18/18 21:55 Ur Epithelial Cells FEW /lpf (FEW) 03/18/18 21:55 Urine Bacteria FEW /hpf (NONE SEEN) 03/18/18 21:55 Urine Mucus MODERATE /lpf (FEW) 03/18/18 21:55 - Physical Exam Vitals and I&O: Vital Signs Temp 97.8 F 03/22/18 20:00 Pulse 94 03/22/18 22:59 Resp 18 03/22/18 22:59 BP 132/75 03/22/18 20:00 Pulse Ox 98 03/22/18 22:59 Intake & Output 03/22/18 03/22/18 03/23/18 06:59 18:59 06:59 Intake Total 150 650 Balance 150 650 Weight (lbs) 81.448 kg 81.193 kg Intake: Intake, IV Amount 50 cefTRIAXone 1 gm In 50 Sodium Chloride 0.9% 50 ml @ 100 mls/hr IV Q24HR [facility] Rx#:[id number] Oral 100 650 Other: # Voids 2 3 # Bowel Movements 2 1 Stool Characteristics Soft Soft Weight Source Bedscale Bedscale Active Medications: Current Medications Albuterol/Ipratropium (Duoneb Neb) 3 ml HHN Q4HRT CELESTINO Stop: 05/18/18 14:59 Last Admin: 03/22/18 22:59 Dose: 3 ml Amlodipine Besylate (Norvasc) 5 mg PO DAILY CELESTINO Stop: 05/18/18 08:59 Last Admin: 03/22/18 09:03 Dose: 5 mg Famotidine (Pepcid) 20 mg PO HS CELESTINO Stop: 05/18/18 20:59 Last Admin: 03/22/18 20:54 Dose: 20 mg Heparin Sodium (Porcine) (Heparin) 5,000 units SUBQ Q12HR CELESTINO Stop: 05/18/18 20:59 Last Admin: 03/22/18 20:55 Dose: 5,000 units Ceftriaxone Sodium 1 gm/ (Sodium Chloride) 50 mls @ 100 mls/hr IV Q24HR CELESTINO Stop: 05/18/18 02:29 Last Infusion: 03/22/18 02:48 Dose: Infused Lactobacillus Rhamnosus (Culturelle 15b) 1 each PO DAILY CELESTINO Stop: 05/18/18 13:59 Last Admin: 03/22/18 09:02 Dose: 1 each Metformin HCl (Glucophage) 500 mg PO BID CELESTINO Stop: 05/18/18 08:59 Last Admin: 03/22/18 16:34 Dose: 500 mg Metoprolol Tartrate (Lopressor) 25 mg PO BID CELESTINO Stop: 05/18/18 08:59 Last Admin: 03/22/18 16:34 Dose: 25 mg Miscellaneous (Vte Chemical Prophylaxis Screen/ Admission) 1 ea PRN PRN PRN Reason: PROTOCOL Stop: 05/18/18 10:11 Miscellaneous (Probiotic Screen) 1 [facility] PRN PRN PRN Reason: PROTOCOL Stop: 05/18/18 11:36 Olanzapine (Zyprexa) 20 mg PO HS CELESTINO; Protocol Stop: 05/18/18 20:59 Last Admin: 03/22/18 20:54 Dose: 20 mg Potassium Chloride (Klor-Con) 20 meq PO DAILY CELESTINO Stop: 05/18/18 20:59 Last Admin: 03/22/18 09:02 Dose: 20 meq Trazodone HCl (Desyrel) 100 mg PO HS CELESTINO Stop: 05/18/18 20:59 Last Admin: 03/22/18 20:54 Dose: 100 mg General: weak, lethargic, congested HEENT: NC/AT, PERRLA, EOMI, anicteric sclerae, throat clear, thyromegaly Neck: Supple, No JVD, No thyromegaly Lungs: wheezing, ronchi Cardiovascular: RRR, Normal S1, Normal S2 Abdomen: soft, non-tender, non-distended Extremities: clear Neurological: no change - Procedures Procedures: Procedures Procedure Code Date OTHER GROUP THERAPY 94.44 09/18/10 RECREATIONAL THERAPY 93.81 09/18/10 Internal Medicine Assmt/Plan - Assessment Assessment: ALOC: on and off; observe closely. Early rt PNA: IVPB ABX. Hypokalemia: supplemented; repeat BMP in AM. New leukocutosis: resolving? IVPB ABX will be adjusted accordingly. Fever: on and off; but better now. DM: adjusting meds as needed. s/p falls: fall prevention is being exercised. Nutritional Asmnt/Malnutr-PDOC - Dietary Evaluation Malnutrition Findings (Please click <Entered> for more info): Nutritional Asmnt/Malnutrition Start: 03/19/18 17: 08 Text: Status: Complete Freq: Protocol: Document 03/19/18 17:08 LCFLETCHERG (Rec: 03/19/18 17:14 [email or web address] [id number]) Nutritional Asmnt/Malnutrition Patient General Information Nutritional Screening High Risk Diagnosis PNA, metabolic alkalosis Pertinent Medical Hx/Surgical Hx HTN, DM, PUD/GERD, thyroid disorder, polyneuropathy, OA, depression, schizophrenia Subjective Information Consult received for poor appetite. Pt seen lying in bed at time of visit, awake, not answering RD questions. Per RN , pt consumed about 75% of breakfast this morning. Current Diet Order/ Nutrition Support pureed Pertinent Medications culturelle, glucophage Pertinent Labs 03/19 K 3.4, Cr 0.6, glucose 128, alb 3.7 03/18 Cr 0.6, glucsoe 155, Alb 3.9 Nutritional Hx/Data Height 1.75 m Height (Calculated Centimeters) 175.3 Current Weight (lbs) 79.832 kg Weight (Calculated Kilograms) 79.8 Weight (Calculated Grams) 42267.3 Miles Body Weight 160 Body Mass Index (BMI) 25.9 Weight Status Overweight GI Symptoms GI Symptoms None Last BM not indicated Difficult in: None Skin Integrity/Comment: bipin cole 12 Current %PO Good (75-100%) Estimated Nutritional Goals BEE in Kcals: Using Current wt Calories/Kcals/Kg 25-30 Kcals Calculated 1822-5876 Protein: Using Current wt Protein g/k Protein Calculated 80 Fluid: ml 2000-2400ml (1ml/kcal) Nutritional Problem 1. Problem Problem altered nutrition related labs Etiology electrolytes imbalance and hx of DM Signs/Symptoms: K 3.4, glucose 128-155 Malnutrition Alert Is there a minimum of two criteria No selected? Query Text:Check all the applicable criteria. A minimum of two criteria are recommended for diagnosis of either severe or non-severe malnutrition. Malnutrition Related to Morbid Obesity Malnutrition related to morbid obesity No Intervention/Recommendation Comments 1. Continue with pureed diet as ordered. Considering adding CCHO-60gm diet restriction if PO intake adequate. 2. Monitor PO intake, wt, labs and skin integrity 3. F/U as high risk in 2-3 days, 03/21-03/22 Expected Outcomes/Goals Expected Outcomes/Goals 1. PO intake to meet at least 75% of nutritional needs. 2. Wt stability, skin to remain intact, labs to approach WNL.
[2018-03-23] MEDS: cefTRIAXone 1 GM in Sodium Chloride 0.9% 50 ML IV SCH (02:24)
[2018-03-23] MEDS: Albuterol/Ipratropium Neb 3 ML AERS HHN SCH ×5 (03:26→19:08)
[2018-03-23] MEDS: Lactobacillus Rhamnosus GG 15 Billion CFU CAP.SPRINK PO SCH (08:05)
[2018-03-23] MEDS: Potassium Chloride 20 mEq ER Tab PO SCH (08:05)
--- NOTE | 2018-03-24 00:17 | Discharge Summary ---
DATE OF DISCHARGE: 03/24/2018 FINAL DIAGNOSES: 1. Early pneumonia, on IVPB antibiotics. 2. Fever, resolved. 3. Altered level of consciousness stabilized. 4. Hypokalemia, supplemented. 5. Leukocytosis, on and off antibiotics. 6. Status post fall without apparent fracture. 7. Diabetes. HOSPITAL COURSE: The patient is a 67-year-old -[place] male admitted due to high fever, tachycardia and with early pneumonia on the right side. The patient was empirically started on IVPB antibiotics. He also had metabolic alkalosis. But the patient refused redrawn to repeat the ABG. The patient was confused from time to time, but stabilized. The patient was accepted to [facility] in [place]. DISCHARGE CONDITION: Stable. DISPOSITION: [facility], [place]. DISCHARGE MEDICATIONS: Continue medication from here. DIET: 1800 ADA, cardiac, soft diet. ACTIVITY: Bed rest with physical therapy. FOLLOWUP: Same day in [place]. [facility]# [id number]
== END 2018-03-23 21:00 | DRG 871 ==
LOC: ER 20:27 → TELE 23:50
PROVIDERS: ADMIT Internal Medicine; ATTEND Internal Medicine
DX: A41.9 Sepsis, unspecified organism (principal); G93.41 Metabolic encephalopathy; J18.9 Pneumonia, unspecified organism; I10 Essential (primary) hypertension; K21.9 Gastro-esophageal reflux disease without esophagitis; R62.7 Adult failure to thrive; F32.9 Major depressive disorder, single episode, unspecified; E11.40 Type 2 diabetes mellitus with diabetic neuropathy, unspecified; M19.90 Unspecified osteoarthritis, unspecified site; F20.9 Schizophrenia, unspecified; F03.90 Unspecified dementia, unspecified severity, without behavioral disturbance, psychotic disturbance, mood disturbance, and anxiety; E87.6 Hypokalemia; Z91.81 History of falling; Z88.0 Allergy status to penicillin
CPT/HCPCS: 36415-UA; 36600-90; 71045-TC; 80048-TC; 80053-TC; 80061-TC; 81001-TC; 81003-TC; 82803-TC; 83880-TC; 84153-90; 84443-TC; 84484-TC; 85025-TC; 85379-TC; 87086-90; 93005; 94640; 94760; J0696; J1644; J7051; Z7610